=== PATIENT | female | born 1950 | race Caucasian/White ===

== ENCOUNTER 2018-06-04 13:46 | Emergency (ER) | payer MEDICARE, OTHER ==
--- NOTE | 2018-06-04 14:07 | ER Report ---
History and Physical Time Seen By MD: 14:06 HPI/ROS CHIEF COMPLAINT: Fall from standing HISTORY OF PRESENT ILLNESS: Patient is a 68-year-old female here with complaints of left shoulder pain and deformity after falling off of a [employer] platform onto her left shoulder. Patient is neurovascularly intact with good perfusion distal to the injury site. Patient denies loss of consciousness or further injury at this time. Denies chest pain, shortness breath, paresthesias. REVIEW OF SYSTEMS: Constitutional: No fever, no chills. Eyes: No discharge. ENT: No sore throat. Cardiovascular: No chest pain, no palpitations. Respiratory: No cough, no shortness of breath. Gastrointestinal: No abdominal pain, no vomiting. Genitourinary: No hematuria. Musculoskeletal: + Left shoulder deformity with pain and aching sensation down the left arm. Skin: No rashes. Neurological: No headache, sensation intact distal to the injury site Allergies: Coded Allergies: No Known Drug Allergies (Unverified , 06/04/18) Home Meds Reported Medications Acyclovir (ACYCLOVIR) 400 Mg Tablet, 400 MG PO QDAY, TAB 06/04/18 Constitutional Vital Sign - Last 24 Hours 06/04/18 06/04/18 06/04/18 06/04/18 14:05 14:10 14:16 14:30 Temp 98.4 Pulse 80 69 Resp 18 16 B/P (MAP) 131/68 131/68 (89) 90/42 (58) Pulse Ox 98 98 O2 Delivery Room Air 06/04/18 06/04/18 06/04/18 06/04/18 14:46 15:00 15:05 15:10 Pulse 61 65 60 Resp 14 0 7 B/P (MAP) 122/68 (86) Pulse Ox 97 100 06/04/18 06/04/18 06/04/18 06/04/18 15:15 15:20 15:25 15:30 Pulse 69 82 77 66 Resp 15 17 30 13 B/P (MAP) 116/65 (82) 118/70 (86) 139/82 (101) Pulse Ox 100 89 100 100 06/04/18 06/04/18 06/04/18 06/04/18 15:35 15:40 15:45 15:50 Pulse 58 ??? Resp 16 13 18 B/P (MAP) 143/86 (105) 125/76 (92) 116/69 (85) 115/69 (84) Pulse Ox 100 100 100 06/04/18 06/04/18 06/04/18 06/04/18 15:55 16:00 16:05 16:10 Pulse 83 Resp 18 B/P (MAP) 115/93 (100) 130/80 (97) 118/76 (90) 117/73 (88) Pulse Ox 99 06/04/18 16:15 Pulse 74 Resp 14 B/P (MAP) 121/69 (86) Pulse Ox 100 Physical Exam General Appearance: The patient is alert, has no immediate need for airway protection and no signs of toxicity. No acute distress Eyes: Pupils equal and round no pallor or injection. ENT, Mouth: Mucous membranes are moist. Respiratory: There are no retractions, lungs are clear to auscultation. Cardiovascular: Regular rate and rhythm. Gastrointestinal: Abdomen is soft and non tender, no masses, bowel sounds normal. Neurological: Neurovascularly intact distal to the injury site in the distal left extremity. Skin: Warm and dry, no rashes. Musculoskeletal: Neck is supple non tender. Minimal range of motion of the left shoulder post injury, obvious deformity of the left shoulder DIFFERENTIAL DIAGNOSIS: After history and physical exam differential diagnosis was considered for fracture, dislocation, sprain Medical Decision Making EKG/Imaging Imaging Location: [facility] - [place] Patient: Eveline Saleh : 1950 Visit/Account:[id number] Date of Sevice: 06/04/2018 SHOULDER MIN 2 VIEWS LEFT, CLAVICLE LEFT Indication: Left shoulder and clavicle pain after fall. Comparison: Unavailable Findings: 2 views of the left shoulder and 2 views of the left clavicle. Anterior dislocation of the left humeral head. No discrete fractures identified. The mid shaft of the humerus does show remodeling consistent previous fracture. No other dislocation. AC joint appears intact. No fractures are identified. No bony lesions. Soft tissues are unremarkable. IMPRESSION: 1. Anterior dislocation of left humeral head. No discrete acute fractures. SHOULDER MIN 2 VIEWS LEFT, CLAVICLE LEFT Indication: Left shoulder and clavicle pain after fall. Comparison: Unavailable Findings: 2 views of the left shoulder and 2 views of the left clavicle. Anterior dislocation of the left humeral head. No discrete fractures identified. The mid shaft of the humerus does show remodeling consistent previous fracture. No other dislocation. AC joint appears intact. No fractures are identified. No bony lesions. Soft tissues are unremarkable. IMPRESSION: 1. Anterior dislocation of left humeral head. No discrete acute fractures. SHOULDER 1 VIEW LEFT HISTORY: post reduction Closed reduction films FINDINGS: Single AP film demonstrates successful reduction of the previously seen and described anterior dislocation left shoulder. No associated fractures of the visualized proximal humerus, scapula, clavicle or adjacent ribs. IMPRESSION: 1. Successful reduction of the left shoulder ED Course/Re-evaluation ED Course Patient is a 68-year-old female here with complaints of left shoulder pain and deformity after falling off of a platform shortly prior to arrival. Patient is neurovascularly intact at time of evaluation with intact deltoid sensation. Patient was given an initial bolus of propofol 100 mg and a subsequent bolus of 50 mg of propofol with successful reduction of the shoulder dislocation which was confirmed with repeat x-ray imaging. Placed in a sling and advised to follow -up with orthopedics in one week. Patient was neurovascularly intact with intact deltoid sensation postreduction. Re-evaluation Patient had significant relief of pain after reduction Procedure Procedural sedation: Please see nursing notes and nursing packet for exact times and further details. Verbal and written consent were obtained from the patient. Patient was initially given 100 mg of propofol after supplemental oxygen was applied and resuscitation supplies were made present. Patient was given a subsequent dose of 50 mg of propofol after which a successful reduction of the anterior left shoulder dislocation was completed. Post reduction neurovascular exam was intact and deltoid sensation was intact. Patient was placed in a sling and advised to follow-up with orthopedics. Patient was stable and tolerated the procedure well. Decision to Disposition Date: Jun 04, 2018 Decision to Disposition Time: 16:20 Depart Departure Latest Vital Signs Vital Signs Date Time Temp Pulse Resp B/P (MAP) Pulse Ox O2 Delivery O2 Flow Rate FiO2 06/04/18 16:15 74 14 121/69 (86) 100 06/04/18 14:05 98.4 Room Air Impression: Primary Impression: Dislocation, shoulder, anterior Condition: Improved Disposition: HOME OR SELF-CARE Patient Instructions: Shoulder Dislocation (ED) Additional Instructions: Please keep the sling in place for the next several days. Please follow-up with orthopedics next week for follow-up care as needed. Please return promptly if you develop numbness in the arm, weakness, increasing pain. TERENCE VELÁSQUEZ DO Jun 04, 2018 14:07
[2018-06-04] MEDS ORDERED: ACYC-50 PO (14:11)
[2018-06-04] MEDS ORDERED: HYDROMORPHONE HCL 1 MG/ML SYRINGE IM ONE (14:15)
[2018-06-04] MEDS ORDERED: NS(*) 0.9% 1000 ML BAG 1,000 ML IV ONE (15:00)
[2018-06-04] MEDS ORDERED: KETAMINE HCL 500 MG/5 ML VIAL IVP ONE (15:10)
[2018-06-04] MEDS ORDERED: PROPOFOL(*)1000 MG/100 ML VIAL 100 ML IV PRN (15:10)
[2018-06-04] MEDS ORDERED: PROPOFOL EMUL(*) 10MG/ML 20 ML 20 ML ONE (15:14)
--- NOTE | 2018-06-04 15:21 | RADIOLOGY IMAGING REPORT ---
FACILITY: [facility] - [place] PATIENT NAME: Eveline Saleh : 1950 MR: [id number] V: [id number] EXAM DATE: ORDERING PHYSICIAN: TERENCE VELÁSQUEZ TECHNOLOGIST: [place] [facility] [place]: Eveline Saleh : 1950 Visit/Account:[id number] Date of Sevice: 06/04/2018 SHOULDER MIN 2 VIEWS LEFT, CLAVICLE LEFT Indication: Left shoulder and clavicle pain after fall. Comparison: Unavailable Findings: 2 views of the left shoulder and 2 views of the left clavicle. Anterior dislocation of the left humer al head. No discrete fractures identified. The mid shaft of the humerus does show remodeling consiste nt previous fracture. No other dislocation. AC joint appears intact. No fractures are identified. No bony lesions. Soft tissues are unremarkable. IMPRESSION: 1. Anterior dislocation of left humeral head. No discrete acute fractures. I called report to TERENCE VELÁSQUEZ at 06/04/2018 3:16 PM. Report Dictated By: Jaswant Medina at 06/04/2018 3:11 PM Report E-Signed By: Jaswant Medina at 06/04/2018 3:17 PM WSN:[id number]
--- NOTE | 2018-06-04 15:21 | RADIOLOGY IMAGING REPORT ---
FACILITY: [facility] - [place] PATIENT NAME: Eveline Saleh : 1950 MR: [id number] V: [id number] EXAM DATE: ORDERING PHYSICIAN: TERENCE VELÁSQUEZ TECHNOLOGIST: Location: [facility] Patient: Eveline Saleh : 1950 Visit/Account:[id number] Date of Sevice: 06/04/2018 SHOULDER MIN 2 VIEWS LEFT, CLAVICLE LEFT Indication: Left shoulder and clavicle pain after fall. Comparison: Unavailable Findings: 2 views of the left shoulder and 2 views of the left clavicle. Anterior dislocation of the left humer al head. No discrete fractures identified. The mid shaft of the humerus does show remodeling consiste nt previous fracture. No other dislocation. AC joint appears intact. No fractures are identified. No bony lesions. Soft tissues are unremarkable. IMPRESSION: 1. Anterior dislocation of left humeral head. No discrete acute fractures. I called report to TERENCE VELÁSQUEZ at 06/04/2018 3:16 PM. Report Dictated By: Jaswant Medina at 06/04/2018 3:11 PM Report E-Signed By: Jaswant Medina at 06/04/2018 3:17 PM WSN:[id number]
--- NOTE | 2018-06-04 16:03 | RADIOLOGY IMAGING REPORT ---
FACILITY: [facility] PATIENT NAME: Eveline Saleh : 1950 MR: [id number] V: [id number] EXAM DATE: ORDERING PHYSICIAN: TERENCE VELÁSQUEZ TECHNOLOGIST: [place] [facility] [place]: Eveline Saleh : 1950 Visit/Account:[id number] Date of Sevice: 06/04/2018 SHOULDER 1 VIEW LEFT HISTORY: post reduction Closed reduction films FINDINGS: Single AP film demonstrates successful reduction of the previously seen and described anterior disloc ation left shoulder. No associated fractures of the visualized proximal humerus, scapula, clavicle or adjacent ribs. IMPRESSION: 1. Successful reduction of the left shoulder Report Dictated By: Travis Tran MD at 06/04/2018 3:58 PM Report E-Signed By: Travis Tran MD at 06/04/2018 4:00 PM WSN:[id number]
[2018-06-04 16:15] VITALS: BP 121/69
== END 2018-06-04 16:23 | disposition home or self-care (01) ==
LOC: ER 14:11
DX: S43.005A Unspecified dislocation of left shoulder joint, initial encounter (principal); W17.89XA Other fall from one level to another, initial encounter
CPT/HCPCS: 23650; 73000; 73020; 73030; 96372; 99152; 99153; 99284; A4565; J1170; J2704; J7030